=== PATIENT | male | born 1955 ===

== ENCOUNTER 2019-06-28 13:59 | Inpatient (IN) | payer MEDICARE, SELFPAY ==
[2019-06-28] VITALS (11 sets, daily range): BP systolic 76–121; BP diastolic 50–82; PULSE 109–142; RESP 23–43; TEMP 36.3–37.2; O2SAT 94–100
--- NOTE | ~2019-06-28 | XR_ITS ---
EXAMINATION: XR chest 1V portable DATE: 06/29/2019 03:43 INDICATION: Hypoxia. TECHNIQUE: frontal view of the chest was obtained. COMPARISON: Chest radiograph dated 06/28/2019 FINDINGS: Pulmonary vascular congestion and mild increased interstitial pattern in the bilateral lower lung zon es and favor mild pulmonary edema over pneumonia. No focal airspace consolidation, pleural effusion o r pneumothorax. Heart size is normal. Aneurysmal aortic arch. IMPRESSION: 1. Pulmonary vascular congestion with increasing interstitial pattern in the bilateral lower lung zon es and favor mild pulmonary edema over pneumonia. Reviewed, dictated and finalized at location A. MING POOL SERVICEPERSON IMPRESSION: 1. Pulmonary vascular congestion with increasing interstitial pattern in the bi lateral lower lung zones and favor mild pulmonary edema over pneumonia.
--- NOTE | ~2019-06-28 | XR_ITS ---
EXAMINATION: XR chest 1V portable INDICATION: Respiratory distress TECHNIQUE: Portable AP chest at 1438 hours COMPARISON: None available FINDINGS: A right subclavian Port-A-Cath ends with its tip at the superior cavoatrial junction. The l ungs are free of acute opacities. There is no pleural effusion or pneumothorax. The cardiomediastinal silhouette is normal. IMPRESSION: 1. No acute cardiopulmonary abnormality. Reviewed, dictated and finalized at location A. INSPECTOR
--- NOTE | 2019-06-28 14:08 | ED.GENADULT ---
HPI - General Adult General Chief complaint: Unspecified Stated complaint: unresponsive Time Seen by Provider: 06/28/19 14:04 Source: family Mode of arrival: EMS Limitations: clinical condition History of Present Illness HPI narrative: The pt is a 64 y/o male who presents to the ED, via EMS, with c/o being near . Per pt's daughter, the pt recently finished treatment for pancreatic CA and is extremely lethargic. He has been refusing to come to the hospital. His daughter states that she tried to get the pt to the hospital yesterday because she did not want him to pass at home in front of her kids. The pt's is his PoA and is en route to the hospital. EMS personnel states that a nonrebreather was put on the pt en route to the ED because he appeared to be struggling. The pt fell yesterday while walking to the bathroom and could not get up. A complete HPI was limited due to the pt's clinical condition. MD complaint: Near Onset (ago): unknown Related Data Home Medications Medication Instructions Recorded Confirmed insulin glargine [Lantus U-100 5 unit SUBCUT DAILY 06/28/19 06/28/19 Insulin] Allergies Allergy/AdvReac Type Severity Reaction Status Date / Time lisinopril [Zestril] Allergy Intermediate headache Verified 03/20/19 12:36 Review of Systems Review of Systems: ROS unobtainable: other (A complete ROS was unobtainable due to the pt's clinical condition) [facility] Past Medical History Medical History (Updated 06/28/19 @ 19:48 by Paulino Freitas MD) Abdominal abscess Postop complications from his Whipple procedure. Diabetes DM2 (diabetes mellitus, type 2) Drug use DVT (deep venous thrombosis) Postop Whipple History of pancreatic cancer Status post Whipple 1 year ago and chemo treatment before Whipple. Hx of bladder cancer Hx of testicular cancer Orchiectomy on 1 the size with a prosthesis and had radiation for testicular cancer Pulmonary emboli Postop Whipple Sepsis Postop Whipple Skin cancer Multiple lesions removed from various parts of his body including his ears face and chest as well as his arms Vascular insufficiency Surgical History Surgical History (Updated 06/28/19 @ 18:38 by Abbie Browne NP) H/O cystoscopy Every 3 months to [facility] the bladder for bladder cancer. H/O splenectomy With Whipple History of bladder surgery Secondary to bladder cancer. Multiple cystoscopies with removal of bladder cancer History of hand surgery Right hand due to an injury History of left knee surgery X3 History of pancreatectomy Whipple with spleen ectomy. History of shoulder surgery History of testicular surgery Previous back surgery Family History Family History (Updated 06/28/19 @ 18:31 by Abbie Browne NP) Mother Bipolar 1 disorder Father Pancreatic cancer Sibling Renal cancer Sibling Colon cancer Social History Social History (Updated 06/28/19 @ 18:47 by Abbie Browne NP) Social History: The patient is essentially homeless and has been staying with different children. He is currently staying with his daughter and sleeping on the couch. She has a 2 bedroom apartment and has 2 children. The patient is a DNR and his ex- is his power prosecuting attorney for healthcare. He is retired delivery truck driver. He is to use various drugs when he was younger. Anywhere from marijuana to benzos to crack cocaine. No longer uses any street drugs. No alcohol. Patient continues to smoke a pack a cigarettes a day since he was about 10 years old. He has 3 children. Herminia is his ex-. Smoking status: Current every day smoker Alcohol intake: never Substance use: never Substance use type: former substance user, marijuana, crack/cocaine, amphetamines, tranquilizers, sedatives, opiates and prescription drug Living arrangements: with family Occupation/Education: retired Gender identity (if verbalized by the patient): Male Spiritual care concerns: No Agree to blood p
--- NOTE | 2019-06-28 14:16 | ECG_ITS ---
Measurements Intervals [place] Rate: 137 P: NM: 0 QRS: 264 QRSD: 142 T: 70 QT: 326 QTc: 494 Interpretive Statements ATRIAL FLUTTER/TACHYCARDIA WITH RAPID VENTRICULAR RESPONSE RIGHT AXIS DEVIATION INTRAVENTRICULAR CONDUCTION DELAY POOR R WAVE PROGRESSION, ANTERIOR LEADS PEAKED T WAVES- CONSIDER HYPERKALEMIA OR ISCHEMIA ABNORMAL ECG Electronically Signed On 06-28-2019 17:22:12 [employer] PARTS CLERK by Nayan Johnson D.O.
[2019-06-28 14:32] LABS: Fractional Inspired Oxygen 21 %; HCO3 VBG 11.1 mEq/l (24.0-30.0); PO2 VBG 36.4 mmHg (35.0-45.0); pH VBG 7.288 (7.300-7.400)
[2019-06-28 14:33] LABS: Device ROOM AIR; PCO2 VBG 23.8 mmHg (42.0-48.0)
[2019-06-28] MEDS: SODIUM CHLORIDE 0.9% IV 1,000 ML 999 ML IV CONT ×5 (14:44→22:11)
[2019-06-28 14:46] LABS: Basophils Absolute Auto 0.1 K/mm3 (0.0-0.1); Basophils Percent Auto 0.5 % (0.2-1.2); Hematocrit 48.5 % (42.0-52.0); Immature Granulocyte Absolute 0.24 K/mm3 (0.00-0.031); Immature Granulocyte Percent A 1.5 % (0-0.5); Lymphocytes Absolute Auto 0.56 K/mm3 (0.9-3.2); Lymphocytes Percent Auto 3.5 % (18.3-44.2); Mean Corpuscular Hemoglobin 29.8 pg (26-34); Mean Corpuscular Volume 90.3 fl (80-100); Monocytes Absolute Auto 1.5 K/mm3 (0.1-0.6); Monocytes Percent Auto 9.4 % (2.6-8.5); Neutrophils Absolute Auto 13.8 K/mm3 (1.3-6.7); Neutrophils Percent Auto 85.1 % (45.5-73.1); Nucleated Red Blood Cells Absolute Auto 0.1 K/mm3 (0.0-0.012); Nucleated Red Blood Cells Perc 0.3 % (0.0-0.2); Platelet Count Result 166 k/mm3 (150-375); Red Blood Count 5.37 M/mm3 (4.6-6.20); Red Cell Distribution Width 14.1 % (11.5-14.5); White Blood Count 16.2 K/mm3 (4.5-10.0)
[2019-06-28 14:56] LABS: INR 1.4; Prothrombin Time 17.1 Seconds (11.1-14.7)
[2019-06-28 14:57] LABS: Partial Thromboplastin Time 39.6 SECONDS (22.3-36.8)
[2019-06-28 15:01] LABS: Beta-Hydroxybutyrate/Acetoacetate 1.95 mmol/L (0.02-0.27)
[2019-06-28 15:04] LABS: Alkaline Phosphatase 265 U/L (38-126); Bilirubin,Total 6.9 mg/dL (0.2-1.3); Blood Urea Nitrogen 82 mg/dL (9-20); Carbon Dioxide 11 mmol/L (22-30); Chloride 82 mmol/L (98-107); Estimated Glomerular Filt Rate 13; Magnesium 2.6 mg/dL (1.6-2.3); Potassium 5.6 mmol/L (3.4-5.0); Sodium 128 mmol/L (137-145)
[2019-06-28 15:09] LABS: Alanine Aminotransferase 555 U/L (4-50); Glucose 766 mg/dL (75-110)
[2019-06-28 15:15] LABS: Lactic Acid Reflex 14.3 mmol/L (0.7-2.1)
[2019-06-28 15:30] LABS: Aspartate Amino Transferase 2048 U/L (17-59); CRP 41.4 mg/dL (<1.0)
[2019-06-28] MEDS: INSULIN HUMAN REGULAR (*BKC) 100 UNITS/ML 10 UNITS IV PUSH (15:47)
[2019-06-28 15:58] LABS: Glucose Point of Care > 500 (65-105)
[2019-06-28] MEDS: INSULIN HUMAN REGULAR (*BKC) 100 UNITS in SODIUM CHLORIDE 0.9% IV 99 ML 14.1 UNITS IV CONT (16:28)
--- NOTE | 2019-06-28 17:18 | ADMGEN ---
This patient, Gold Terry, was admitted to Intensive Care Unit-11. Patient/family oriented to hospital policies and general routines including ID bracelet, bed and alarms, visiting hours, pain management, procedures, bathroom and other care routines, personal items, smoking policy, room service/diet, and visiting hours. Valuables list has been completed. Information on how to activate the Rapid Response Team has been discussed. Patient/Family are encouraged to report perceived risks to care and to ask questions if they do not understand what they are told or what they should do.
[2019-06-28 17:44] LABS: Reflex Lactic Acid Yes or No Add Lactic
[2019-06-28 18:03] LABS: Blood Urea Nitrogen 90 mg/dL (9-20); Calcium 9.4 mg/dL (8.4-10.2); Carbon Dioxide 14 mmol/L (22-30); Chloride 90 mmol/L (98-107); Estimated CRCL calculation 16 ml/min; Estimated Glomerular Filt Rate 16; Glucose 590 mg/dL (75-110); Potassium 4.1 mmol/L (3.4-5.0); Sodium 132 mmol/L (137-145)
[2019-06-28] MEDS: SODIUM CHLORIDE 0.9% IV 1,000 ML 150 ML IV CONT (18:15)
--- NOTE | 2019-06-28 18:17 | PM.IMHP ---
H&P: HPI History of Present Illness Chief complaint: DKA Narrative: Gold Terry is a 64 year old male who is currently staying with his daughter and her children. The patient has a history of being diabetic and being noncompliant. The patient eats and drinks whenever he wants. The last time the patient was seen here was March of last year and he had elevated blood sugars at that time. Patient's anion gap was 32 today. And noncompliant with treatment. The patient is a DNR and wants to go to hospice. He has failure to thrive. He has been nauseated and vomiting the last couple days. He has been so weak that he cannot walk. 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 He did have a Whipple procedure approximately 1 year ago and had multiple complications from the Whipple. The patient has lost over 100 lb since then. Patient has lost the will to live. Patient has just been lying around on his daughter's couch and not being able to eat very much or be ambulatory. The daughter felt that the patient was going to did not want the patient to in front of the children. His ex- is the power quality head and we have been talking about the his living will and hospice.Patient's white count was noted to be 16.2. PH is noted to be 7.288. CO2 was 23.8. Initial blood sugar was noted to be 766 and then 590. Lactic 14.3. Total bilirubin 6.9. ALT 555. Alkaline phosphatase 265. C reactive protein is 41.4. b- hob 1.95. Chest x-ray was nothing acute. Patient did not want to come to the emergency room today but his daughter and ex- insisted. The patient did not want to be admitted are treated. Patient is confused and the power quality head made that decision to get the patient treated and admitted. However they feel that the patient will not be able to go back home with them. Date of service 06/28/2019. Patient was admitted to ICU for DKA protocol treatment Review of Systems Review of Systems: Narrative: Patient is unable to answer questions at this time as he is confused. The patient thinks that he is back at his daughter's house and wants to go upstairs and take a shower. Polydipsia polyphasia nausea vomiting polyuria All systems reviewed & are unremarkable except as noted in HPI and below Constitutional: Constitutional: Reports as per HPI, Reports no additional constitutional complaints, Reports anorexia, Reports fatigue, Reports poor appetite and Reports weakness Eyes: Eyes: Reports as per HPI and Reports no additional eye complaints ENT: Reports system reviewed and no additional complaints, except as documented and Reports Normal hearing present Cardiovascular: Cardiovascular: Reports no additional cardiovascular complaints Respiratory: Respiratory: Reports no additional respiratory complaints and Reports no additional respiratory complaints Gastrointestinal: Gastrointestinal: Reports as per HPI and Reports no additional gastrointestinal complaints Musculoskeletal: Musculoskeletal: Reports no additional musculoskeletal complaints Integumentary/Breasts: Skin/Breast: Reports system reviewed and no additional complaints, except as docu and Reports as per HPI Neurologic: Reports system reviewed and no additional complaints, except as documented, Reports as per HPI and Reports Normal hearing present Psychiatric: Psychiatric: Reports no additional psychiatric complaints and Reports as per HPI Endocrine: Endocrine: Reports no additional endocrine complaints Hematologic/Lymphatic: Hematologic/Lymphatic: Reports no additional hematologic/lymphatic complaints Allergic/Immunologic: Allergic/Immunologic: Reports no additional allergic/immunologic complaints [facility] Past Medical History Medical History (Updated 06/28/19 @ 18:38 by Abbie Browne NP) Abdominal abscess Postop complications from his Whipple procedure. Diabetes DM2 (diabetes mellitus, type 2) Drug use DVT (deep venous thrombosis) Postop Whipple History of pancreatic cance
[2019-06-28 18:35] LABS: Glucose Point of Care > 500 (65-105)
[2019-06-28 19:03] LABS: Blood Urea Nitrogen 90 mg/dL (9-20); Calcium 9.4 mg/dL (8.4-10.2); Carbon Dioxide 15 mmol/L (22-30); Chloride 92 mmol/L (98-107); Estimated CRCL calculation 16 ml/min; Estimated Glomerular Filt Rate 16; Glucose 499 mg/dL (75-110); Sodium 133 mmol/L (137-145)
[2019-06-28 19:05] LABS: Lactic Acid 8.8 mmol/L (0.7-2.1)
[2019-06-28 19:13] LABS: Magnesium 2.2 mg/dL (1.6-2.3); Phosphorus 3.7 mg/dL (2.5-4.5)
[2019-06-28 21:20] LABS: Add Urine Microscopic? YES; Appearance Urine Cloudy (Clear); Bacteria Urine Trace /hpf; Bilirubin Urine Negative (Negative); Blood Urine 3+ (Negative); Color Urine Amber (Yellow); Glucose Urine UA 3+ mg/dL (Negative); Ketones Urine Negative (Negative); Leukocyte Esterase Ur Negative LEU/UL (NEGATIVE); Mucus Urine Rare /lpf; Nitrate Urine Negative (Negative); Protein Urine 2+ mg/dL (Negative); RBC Urine 0-2 /hpf (0-2); Specific Grav Ur 1.018 (1.001-1.035); Squamous Epithelial Cell Urine Rare /hpf (Few); Urobilinogen Urine Negative mg/dL (<2.0)
[2019-06-28] MEDS: INSULIN HUMAN REGULAR (*BKC) 100 UNITS in SODIUM CHLORIDE 0.9% IV 99 ML 21 UNITS IV CONT (21:44)
[2019-06-28 22:42] LABS: Glucose Point of Care 411 (65-105)
[2019-06-28 22:42] LABS: Glucose Point of Care 235 (65-105)
[2019-06-28 22:42] LABS: Glucose Point of Care 410 (65-105)
[2019-06-28] MEDS: KCL 20 MEQ/D5/0.45% SOD CHL 1,000 ML 150 ML IV CONT (23:35)
[2019-06-28 23:48] LABS: Blood Urea Nitrogen 92 mg/dL (9-20); Calcium 8.6 mg/dL (8.4-10.2); Carbon Dioxide 21 mmol/L (22-30); Chloride 104 mmol/L (98-107); Estimated CRCL calculation 16 ml/min; Estimated Glomerular Filt Rate 16; Glucose 84 mg/dL (75-110); Potassium 3.8 mmol/L (3.4-5.0); Sodium 138 mmol/L (137-145)
[2019-06-28 23:50] LABS: Glucose Point of Care 81 (65-105)
[2019-06-29] VITALS: BP 74/55; PULSE 117; RESP 32; TEMP 36.4; O2SAT 98
[2019-06-29] MEDS: SODIUM CHLORIDE 0.9% IV 500 ML 999 ML IV CONT (00:22)
[2019-06-29 00:34] LABS: Glucose Point of Care 125 (65-105)
[2019-06-29 01:38] LABS: Glucose Point of Care 141 (65-105)
[2019-06-29 02:00] VITALS: BP 72/67; PULSE 118; RESP 38; O2SAT 97
[2019-06-29 02:11] LABS: Alveolar/Arterial O2 Gradient 63.1 mmHg; Base Excess ABG -6.9 mEq/l (+/-2.0); Fractional Inspired Oxygen 21 %; HCO3 ABG 15.1 mEq/l (22.0-26.0); Oxygen Content ABG 17.8 %vol (16.0-22.0); Oxygen Saturation ABG 92.2 % (95.0-100.0); Oxyhemoglobin 89.8 % THb (90.0-100.0); PO2 ABG 59.3 mmHg (80.0-100.0); PO2 FiO2 Ratio Arterial Blood 2.82 %; Total Hemoglobin 14.1 g/dL (12.0-18.0)
[2019-06-29 02:13] LABS: Device ROOM AIR; PCO2 ABG 22.8 mmHg (35.0-45.0); Site Drawn RIGHT BRACHIAL
[2019-06-29] MEDS: NOREPINEPHRINE 8 MG/D5W 250 ML 8 MG/250 ML BAG 9.4 MG IV CONT (02:15)
[2019-06-29 03:22] LABS: Glucose Point of Care 97 (65-105)
[2019-06-29 03:22] LABS: Glucose Point of Care 123 (65-105)
[2019-06-29 03:31] LABS: Hematocrit 38.3 % (42.0-52.0); Hemoglobin 13.3 g/dL (14.0-18.0); Immature Platelet Fraction Pct 14.3 % (0.9-11.2); Mean Corpuscular HGB Conc 34.7 g/dl (32-36); Mean Corpuscular Volume 86.5 fl (80-100); Mean Platelet Volume 13.2 fl (7.4-10.4); Platelet Count Result 114 k/mm3 (150-375); Red Blood Count 4.43 M/mm3 (4.6-6.20); Red Cell Distribution Width 13.6 % (11.5-14.5); White Blood Count 13.4 K/mm3 (4.5-10.0)
[2019-06-29 03:44] LABS: Blood Urea Nitrogen 98 mg/dL (9-20); Calcium 8.7 mg/dL (8.4-10.2); Carbon Dioxide 21 mmol/L (22-30); Chloride 103 mmol/L (98-107); Estimated CRCL calculation 16 ml/min; Estimated Glomerular Filt Rate 16; Glucose 114 mg/dL (75-110); Lipase 1012 U/L (23-300); Magnesium 1.9 mg/dL (1.6-2.3); Potassium 4.6 mmol/L (3.4-5.0); Sodium 136 mmol/L (137-145)
[2019-06-29 03:47] LABS: Lactic Acid Reflex 4.1 mmol/L (0.7-2.1)
[2019-06-29] MEDS: BUMETANIDE INJ 1 MG/4 ML VIAL IV PUSH (03:57)
[2019-06-29 04:00] VITALS: BP 73/54; PULSE 124; RESP 38; TEMP 37.6; O2SAT 96
[2019-06-29 04:30] VITALS: BP 95/62
[2019-06-29 04:36] LABS: Glucose Point of Care 120 (65-105)
[2019-06-29 05:35] LABS: Glucose Point of Care 162 (65-105)
[2019-06-29 05:50] LABS: Band Neutrophils Percent 14 % (0-6); Large Platelets Present; Lymphocytes Absolute Manual 1.74 K/mm3 (1.1-4.5); Monocytes Percent Manual 12 % (3-9); Neutrophils Absolute Manual 10.05 K/mm3 (1.3-6.7); Neutrophils Percent Manual 61 % (46-73); Nucleated Red Blood Cells 2 %; Total Cells Counted 100
[2019-06-29 06:00] VITALS: BP 64/55; PULSE 120; RESP 40; O2SAT 94
[2019-06-29] MEDS: KCL 20 MEQ/D5/0.45% SOD CHL 1,000 ML 150 ML IV CONT (06:17)
[2019-06-29 06:23] LABS: Reflex Lactic Acid Yes or No Add Lactic
--- NOTE | 2019-06-29 06:50 | PC.NURSE ---
PATIENT , POA IN THE ROOM, DR CAMACHO AND METAL CUTTER NOTIFIED
[2019-07-02 13:42] LABS: Reference Lab Test Result >14.0%
--- NOTE | 2019-07-23 19:03 | PM.DDS ---
Discharge Sum: Prov Provider Primary care physician: UNKNOWN,DOCTOR Admitting provider: Sadiq Rawls MD Consults: 06/28/19 Care Coordination Consult Routine Comment: Reason for Consult:: Hospice Referral Alf Placement Consult to Physician Routine Comment: 06/28/2019 Dr. Boo notified Consulting Provider: Raul Boo microfilm technician/MD group to consult: priti Reason for consultation: dka Has provider been notified: Yes Discharge Sum: Diag Contributing Factors (1) Failure to thrive: Discharge Sum: Summary Date and Time Date of admission: 06/28/19 15:35 Date of : 06/29/19 Time of : 06:50 Summary Details: Narrative: Gold Terry is a 64 year old male who is currently staying with his daughter and her children. The patient has a history of being diabetic and being noncompliant. The patient eats and drinks whenever he wants. The last time the patient was seen here was March of last year and he had elevated blood sugars at that time. Patient's anion gap was 32 today. And noncompliant with treatment. The patient is a DNR and wants to go to hospice. He has failure to thrive. He has been nauseated and vomiting the last couple days. He has been so weak that he cannot walk. 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 He did have a Whipple procedure approximately 1 year ago and had multiple complications from the Whipple. The patient has lost over 100 lb since then. Patient has lost the will to live. Patient has just been lying around on his daughter's couch and not being able to eat very much or be ambulatory. The daughter felt that the patient was going to did not want the patient to in front of the children. His ex- is the power commercial real estate attorney and we have been talking about the his living will and hospice.Patient's white count was noted to be 16.2. PH is noted to be 7.288. CO2 was 23.8. Initial blood sugar was noted to be 766 and then 590. Lactic 14.3. Total bilirubin 6.9. ALT 555. Alkaline phosphatase 265. C reactive protein is 41.4. b- hob 1.95. Chest x-ray was nothing acute. Patient did not want to come to the emergency room today but his daughter and ex- insisted. The patient did not want to be admitted are treated. Patient is confused and the power commercial real estate attorney made that decision to get the patient treated and admitted. However they feel that the patient will not be able to go back home with them. Date of service 06/28/2019. Patient was admitted to ICU for DKA protocol treatment. IT was reported per nursing staff that the patient at 0650 per nursing staff. that no pulse or respirations were noted at that time. Additional Data Confirmation of as documented by pronouncing clinician: no respirations and no heart sounds Attending/PCP notified?: Yes (staff notified Dr. baez) Attending physician: Bunny Corona MD Was code activated?: No Advance directives: Yes Hospice patient?: No (the patient had been considering this )
== END 2019-06-29 06:50 | disposition expired | DRG 638 ==
LOC: ANHED 16:14 → ANHICU 16:48
PROVIDERS: Nurse Practitioner; Admitting Provider Internal Medicine; Emergency Provider Emergency Medicine; Visit Provider Family Medicine
DX: E11.10 Type 2 diabetes mellitus with ketoacidosis without coma (principal); R64 Cachexia; E46 Unspecified protein-calorie malnutrition; Z28.21 Immunization not carried out because of patient refusal; Z86.718 Personal history of other venous thrombosis and embolism; R62.7 Adult failure to thrive; Z68.21 Body mass index [BMI] 21.0-21.9, adult; G62.0 Drug-induced polyneuropathy; T45.1X5A Adverse effect of antineoplastic and immunosuppressive drugs, initial encounter; Z91.14 Patient's other noncompliance with medication regimen; Z91.11 Patient's noncompliance with dietary regimen; Z92.21 Personal history of antineoplastic chemotherapy; Z85.07 Personal history of malignant neoplasm of pancreas; Z85.47 Personal history of malignant neoplasm of testis; Z85.51 Personal history of malignant neoplasm of bladder; Z92.3 Personal history of irradiation; Z90.79 Acquired absence of other genital organ(s); Z86.711 Personal history of pulmonary embolism; Z85.828 Personal history of other malignant neoplasm of skin; I99.8 Other disorder of circulatory system; Z90.81 Acquired absence of spleen; Z66 Do not resuscitate; Z59.0 Homelessness; F17.210 Nicotine dependence, cigarettes, uncomplicated; Z87.898 Personal history of other specified conditions
CPT/HCPCS: 36415; 36600; 71045; 80048; 80053; 81001; 82010; 82803; 82805; 83036; 83605; 83690; 83735; 84100; 84443; 85025; 85055; 85610; 85730; 86140; 87040; 87077; 87081; 87086; 87186; 93005; 96361; 96365; 96376; 99291; J1815; J2543; J3370; J3480; J7030